=== PATIENT | female | born 1940 | race Caucasian/White ===

== ENCOUNTER 2023-07-02 10:57 | Emergency (ER) | payer OTHER, MEDICARE ==
[2023-07-02 11:11] VITALS: RESP 18; TEMP 98; BMI 34.6
[2023-07-02] MEDS ORDERED: ACETAMINOPHEN 500 MG TABLET (FP) ONE (12:50)
[2023-07-02] MEDS ORDERED: predniSONE 20 MG TABLET (UD) ONE (12:50)
[2023-07-02 12:52] LABS: BASO % 0.2 % (0-2.0); EOS % 0.4 % (0-4.5); HEMATOCRIT 32.7 % (32.4-45.2); HEMOGLOBIN 10.6 GM/dL (10.7-15.3); LYMPH % 5.4 % (8-40); MCH 28.9 pg (25.7-33.7); MCHC 32.5 g/dl (32.0-36.0); MEAN CELL VOLUME 89.1 fl (80-96); MEAN PLT VOLUME 8.9 fl (7.5-11.1); MONO % 3.2 % (3.8-10.2); NEUT % 90.8 % (42.8-82.8); PLATELET COUNT 388 10^3/uL (134-434); RBC 3.67 M/mm3 (3.60-5.2); RDW 17.5 % (11.6-15.6); WHITE BLOOD COUNT 18.2 K/mm3 (4.0-10.0)
[2023-07-02] MEDS: predniSONE 20 MG TABLET (UD) PO ONE (12:53)
[2023-07-02] MEDS: ACETAMINOPHEN 500 MG TABLET (FP) PO ONE (12:53)
[2023-07-02] MEDS ORDERED: LIDOCAINE 4% PATCH TP ONE (12:55)
[2023-07-02] MEDS: LIDOCAINE 4% PATCH TP ONE (12:57)
[2023-07-02 13:01] LABS: POTASSIUM 4.8 mmol/L (3.5-5.1)
[2023-07-02 13:03] LABS: ALBUMIN 3.7 g/dl (3.4-5.0); CALCIUM 9.1 mg/dL (8.5-10.1)
[2023-07-02 13:04] LABS: BLOOD UREA NITROGEN 27.1 mg/dL (7-18)
[2023-07-02 13:07] LABS: CREATININE 1.1 mg/dL (0.55-1.3)
[2023-07-02 13:08] LABS: BILIRUBIN,TOTAL 0.3 mg/dL (0.2-1); TOT PROT 7.2 g/dl (6.4-8.2)
[2023-07-02 13:58] LABS: EPI CELLS 7 /uL (0-25.1); HYALINE CASTS 4 /uL (0-3.1); URINE APPEARANCE TURBID; URINE BACTERIA 4 /uL (0-1359); URINE BILIRUBIN NEGATIVE (NEGATIVE); URINE COLOR ORANGE; URINE GLUCOSE (UA) NEGATIVE (NEGATIVE); URINE KETONE TRACE (NEGATIVE); URINE LEUK ESTERASE 1+ (NEGATIVE); URINE NITRITE NEGATIVE (NEGATIVE); URINE PROTEIN 2+ (NEGATIVE); URINE WBC 129 /uL (0-25.8)
[2023-07-02 14:17] LABS: URINE RBC 4599 /uL (0-23.9)
[2023-07-02 18:12] VITALS: BP 154/78; PULSE 70
[2023-07-02] MEDS ORDERED: LIDOCAINE PATCH REMOVAL MC ONE (22:00)
== END 2023-07-02 18:12 | disposition home or self-care (01) ==
LOC: JERFT 10:57
DX: M54.50 Low back pain, unspecified (principal); N20.0 Calculus of kidney
CPT/HCPCS: 36415; 72128-TC; 72131-TC; 74176-TC; 80053; 81003; 85025; 87086; 99284-25